=== PATIENT | male | born 1955 | race Caucasian/White ===

== ENCOUNTER 2020-07-29 09:58 | Day surgery (SDC) | payer BC, MEDICARE ==
--- NOTE | 2020-07-29 08:17 | HP ---
DATE OF SURGERY: 07/29/2020 HISTORY OF PRESENT ILLNESS: The patient is a 64 year-old last colonoscopy six years or so ago. He is in need of follow up screening colonoscopy. No bloody stools. No change in bowel habits. No pain. No blood from his stomach. Family history negative for colon cancer. PAST MEDICAL HISTORY: Diabetes. PAST SURGICAL HISTORY: Foot surgery. Lung surgery. MEDICATIONS: Metformin, vitamin B complex, Turmeric Curcumin, Humalog, tamsulosin, Soliqua, glimepiride. ALLERGIES: MORPHINE. FAMILY HISTORY: Negative for colon cancer. SOCIAL HISTORY: Denies alcohol abuse. REVIEW OF SYSTEMS: Fourteen systems reviewed. No chest pain or palpitations. Other systems negative or noncontributory as above and per preadmission questionnaire. PHYSICAL EXAMINATION: GENERAL: No acute distress. HEENT: Sclerae nonicteric. NECK: No JVD. CHEST: Equal excursion, nonlabored breathing. CVS: Regular rate and rhythm. ABDOMEN: Soft. No peritoneal signs. EXTREMITIES: No significant edema. NEURO: Alert, oriented, moving extremities symmetrically. PSYCH: Appropriate mood and affect. IMPRESSION: History of polyps in the past, need for follow up screening colonoscopy. I feel he is a candidate. Risks and benefits explained in detail including but not limited to bleeding or infection, risk of bowel injury or perforation possibly requiring open procedure, risk of missed or nondiagnosis or incomplete exam possibly requiring barium enema, other studies or procedures, general risk of anesthesia or sedation, risk of bowel prep but not limited to, consent obtained. Will proceed with outpatient follow up colonoscopy.
[2020-07-29] MEDS ORDERED: Lactated Ringers 1,000 ML IV SCH (10:30)
[2020-07-29] MEDS ORDERED: DIPRIVAN 200 MG/20 ML IV ONE (12:20)
[2020-07-29 13:00] VITALS: O2SAT 97
[2020-07-29 13:29] VITALS: PULSE 64
[2020-07-29 13:31] VITALS: BP 142/67
--- NOTE | 2020-07-30 08:49 | OP ---
SURGERY DATE/TIME: 07/29/2020 1206 PREOPERATIVE DIAGNOSIS: History of polyps, need follow up screening colonoscopy. POSTOPERATIVE DIAGNOSES: 1) Small polyps x2 sigmoid colon. 2) Mild diverticulosis. 3) Fair bowel prep. 4) ASA Class II. 5) Withdrawal time approximately eight minutes. 6) Fair bowel prep. PROCEDURES: 1) Colonoscopy to cecum with hot biopsy polypectomy. 2) Small early sigmoid colon polyps versus hyperplastic lesion, path pending. SURGEON: Dr. Tye Leung. ANESTHESIA: MAC. ESTIMATED BLOOD LOSS: Minimal. INDICATIONS: As noted above. Risks and benefits explained in detail but not limited to and consent obtained. DESCRIPTION OF PROCEDURE AND FINDINGS: The patient is taken to the operating room. MAC anesthesia introduced. After official time out and no disagreement with planned procedure, digital rectal exam did not reveal any rectal masses. He did have some minimal internal and external hemorrhoids. Video colonoscope inserted and passed up the tortuous sigmoid, descending, transverse and ascending colon. With external pressure the scope able to be passed around to the cecum. Appendiceal orifice and valve were visualized and photo documented. Prep overall was fair, a little bit of liquidy semi-solid and some foamy stool just slightly limiting the exam for very small lesions. The scope is slowly and carefully withdrawn over the next eight minutes. There were no signs of any large polyps, masses or obstructing lesions. He did have a couple 3 mm early polyps versus hyperplastic lesion in the sigmoid colon removed with hot biopsy forceps and brief bursts of cautery. Good hemostasis noted. Otherwise he had a few tiny diverticula. There were no signs of any large polyps, masses or obstructing lesions. He did have minimal internal and external hemorrhoids. The scope is withdrawn. The patient tolerated the procedure well. Findings discussed with the family out in the waiting area. I will see him back in the office in a couple of weeks to go over the results.
== END 2020-07-29 13:25 | disposition home or self-care (01) ==
LOC: SDC 09:58
PROVIDERS: ATTEND Surgery
DX: Z12.11 Encounter for screening for malignant neoplasm of colon (principal); Z09 Encounter for follow-up examination after completed treatment for conditions other than malignant neoplasm; Z86.010 Personal history of colon polyps; K57.30 Diverticulosis of large intestine without perforation or abscess without bleeding; K63.5 Polyp of colon; E11.9 Type 2 diabetes mellitus without complications; Z79.899 Other long term (current) drug therapy
CPT/HCPCS: 82947; 88305; J2704

== ENCOUNTER 2022-01-07 06:37 | Day surgery (SDC) | payer BC, MEDICARE ==
[2022-01-07] MEDS ORDERED: Depo-Medrol 40 MG/ML IM ONE (06:38)
[2022-01-07] MEDS ORDERED: Sodium Chloride 0.9(Preservative Free) 10 ML IJ ONE (06:38)
[2022-01-07] MEDS ORDERED: Xylocaine 1% Vial 30 ML PF IJ ONE (06:38)
[2022-01-07] MEDS ORDERED: VERSED 5 MG/5 ML ONE (07:57)
[2022-01-07] MEDS ORDERED: DIPRIVAN 200 MG/20 ML IV ONE (08:28)
[2022-01-07] MEDS ORDERED: Lactated Ringers 1,000 ML IV ONE (09:44)
--- NOTE | 2022-01-07 11:07 | XRAY ---
Indication: Lumbar JENNIFER. Intraoperative fluoroscopy provided for 27 seconds. 3 lateral digital spot image submitted for interpretation demonstrates posterior needle tip projecting just posterior to L4-L5 interspace. Small amount of contrast injected for needle placement. Correlate with intraoperative findings/report.
--- NOTE | 2022-01-07 11:34 | XRAY ---
27 seconds fluoroscopy time in surgery for lumbar JENNIFER.
== END 2022-01-07 09:10 | disposition home or self-care (01) ==
LOC: SDC-PAIN 06:37
PROVIDERS: ATTEND Psychiatry & Neurology Pain Medicine
DX: M54.16 Radiculopathy, lumbar region (principal); E11.9 Type 2 diabetes mellitus without complications; Z79.899 Other long term (current) drug therapy
CPT/HCPCS: 62323; 72100; 77003; 82947; J1030; J2001; J2250; J2704; Q9966

== ENCOUNTER 2023-06-02 10:42 | Day surgery (SDC) | payer BC, MEDICARE ==
[2023-06-02] MEDS ORDERED: Sodium Chloride 0.9(Preservative Free) 10 ML IJ ONE (10:43)
[2023-06-02] MEDS ORDERED: LIDOCAINE HCL 1% 50 MG/5 ML VL PF IJ ONE (10:43)
[2023-06-02] MEDS ORDERED: Depo-Medrol 40 MG/ML IM ONE (10:43)
[2023-06-02] MEDS ORDERED: Versed 2 MG/2 ML Injection ONE (12:39)
[2023-06-02] MEDS ORDERED: DIPRIVAN 200 MG/20 ML IV ONE (12:58)
[2023-06-02] MEDS ORDERED: Lactated Ringers 1,000 ML IV ONE (13:48)
--- NOTE | 2023-06-02 13:51 | XRAY ---
Indication: Lumbar JENNIFER. Intraoperative fluoroscopy provided for 24 seconds. 2 digital spot image submitted for interpretation demonstrates posterior needle tip projecting posterior to lumbosacral junction roots. Small amount of contrast injected for needle tip placement. Correlate with intraoperative findings/report.
--- NOTE | 2023-06-02 15:07 | XRAY ---
24 seconds of fluoroscopy was used in surgery for a lumbar JENNIFER.
== END 2023-06-02 13:43 | disposition home or self-care (01) ==
LOC: SDC-PAIN 10:42
PROVIDERS: ATTEND Psychiatry & Neurology Pain Medicine
DX: M54.16 Radiculopathy, lumbar region (principal); E11.9 Type 2 diabetes mellitus without complications
CPT/HCPCS: 62323; 72100; 77003; 82947; J1030; J2001; J2250; J2704; Q9966

== ENCOUNTER 2023-09-22 08:10 | Day surgery (SDC) | payer OTHER, MEDICARE ==
[2023-09-22] MEDS ORDERED: LIDOCAINE HCL 1% 50 MG/5 ML VL PF IJ ONE (08:11)
[2023-09-22] MEDS ORDERED: Sodium Chloride 0.9(Preservative Free) 10 ML IJ ONE (08:11)
[2023-09-22] MEDS ORDERED: Depo-Medrol 40 MG/ML IM ONE (08:11)
[2023-09-22] MEDS ORDERED: Versed 2 MG/2 ML Injection ONE (09:17)
[2023-09-22] MEDS ORDERED: Lactated Ringers 1,000 ML IV ONE (10:03)
[2023-09-22] MEDS ORDERED: DIPRIVAN 200 MG/20 ML IV ONE (10:04)
--- NOTE | 2023-09-22 10:51 | XRAY ---
Indication: Lumbar JENNIFER. Intraoperative fluoroscopy provided for 26 seconds. 2 digital spot images submitted for interpretation demonstrates posterior needle tip projecting posterior to lumbosacral junction interspace. Small amount of contrast injected for needle tip placement. Correlate with intraoperative findings/report.
--- NOTE | 2023-09-22 12:25 | XRAY ---
26 seconds of fluoroscopy was used in surgery for a lumbar JENNIFER.
== END 2023-09-22 11:11 | disposition home or self-care (01) ==
LOC: SDC-PAIN 08:10
PROVIDERS: ATTEND Psychiatry & Neurology Pain Medicine
DX: M54.16 Radiculopathy, lumbar region (principal); E11.9 Type 2 diabetes mellitus without complications
CPT/HCPCS: 62323; 72100; 77003; 82947; J2001; J2250; J2704; Q9966

== ENCOUNTER 2024-05-17 08:21 | Day surgery (SDC) | payer OTHER, MEDICARE ==
[2024-05-17] MEDS ORDERED: Depo-Medrol 40 MG/ML IM ONE (08:22)
[2024-05-17] MEDS ORDERED: LIDOCAINE HCL 2% 100 MG/5 ML IJ ONE (08:22)
[2024-05-17] MEDS ORDERED: propofoL IV ONE (10:10)
--- NOTE | 2024-05-17 11:29 | XRAY ---
Indication: Bilateral L4-S1 MBB. Intraoperative fluoroscopy provided for 19 second. Single digital spot image submitted for interpretation demonstrates posterior needle tips project over expected left and right L4-S1 nerve roots. Correlate with intraoperative findings/report.
--- NOTE | 2024-05-17 14:43 | XRAY ---
19 seconds of fluoroscopy was used in surgery for a bilateral L4-S1 MBB.
== END 2024-05-17 10:55 | disposition home or self-care (01) ==
LOC: SDC-PAIN 08:21
PROVIDERS: ATTEND Psychiatry & Neurology Pain Medicine
DX: M47.816 Spondylosis without myelopathy or radiculopathy, lumbar region (principal); E11.9 Type 2 diabetes mellitus without complications
CPT/HCPCS: 64493; 64494; 72020; 77002; 82947; J2704

== ENCOUNTER 2024-06-21 07:34 | Day surgery (SDC) | payer OTHER, MEDICARE ==
[2024-06-21] MEDS ORDERED: BUPIVACAINE 0.5% VIAL IJ ONE (07:35)
[2024-06-21] MEDS ORDERED: Depo-Medrol 40 MG/ML IM ONE (07:35)
[2024-06-21] MEDS ORDERED: Versed 2 MG/2 ML Injection ONE (08:44)
[2024-06-21] MEDS ORDERED: propofoL IV ONE (09:42)
--- NOTE | 2024-06-21 11:38 | XRAY ---
Indication: Bilateral L4-S1 MBB. Intraoperative fluoroscopy provided for 8 seconds. Single digital spot image submitted for interpretation demonstrates posterior needle tips projecting over expected left and right L4-S1 nerve roots. Correlate with intraoperative findings/report.
--- NOTE | 2024-06-21 12:57 | XRAY ---
8 seconds of fluoroscopy was used in surgery for a bilateral L4-S1 MBB.
== END 2024-06-21 10:08 | disposition home or self-care (01) ==
LOC: SDC-PAIN 07:34
PROVIDERS: ATTEND Psychiatry & Neurology Pain Medicine
DX: M47.817 Spondylosis without myelopathy or radiculopathy, lumbosacral region (principal); E11.9 Type 2 diabetes mellitus without complications
CPT/HCPCS: 64493; 64494; 72020; 82947; J2250; J2704

== ENCOUNTER 2024-07-13 07:10 | Day surgery (SDC) | payer OTHER, MEDICARE ==
[2024-07-13] MEDS ORDERED: methylPREDNISolone acetate IM ONE (07:11)
[2024-07-13] MEDS ORDERED: BUPIVACAINE 0.5% VIAL IJ ONE (07:11)
[2024-07-13] MEDS ORDERED: LIDOCAINE HCL 1% AMPUL 5 ML IJ ONE (07:11)
[2024-07-13] MEDS ORDERED: Versed 2 MG/2 ML Injection ONE (08:06)
[2024-07-13] MEDS ORDERED: propofoL IV ONE (08:50)
--- NOTE | 2024-07-13 10:56 | XRAY ---
Indication: Left L4-S1 RFA. Intraoperative fluoroscopy provided for 12 seconds. 4 digital spot image submitted for interpretation demonstrates posterior needle tips projecting over expected left L4-S1 nerve roots. Correlate with intraoperative findings/report.
--- NOTE | 2024-07-13 12:22 | XRAY ---
12 seconds of fluoroscopy was used in surgery for a left L4-S1 RFA.
== END 2024-07-13 09:25 | disposition home or self-care (01) ==
LOC: SDC-PAIN 07:10
PROVIDERS: ATTEND Psychiatry & Neurology Pain Medicine
DX: M47.817 Spondylosis without myelopathy or radiculopathy, lumbosacral region (principal); E11.9 Type 2 diabetes mellitus without complications
CPT/HCPCS: 64635; 64636; 72100; 82947; J1010; J2250; J2704

== ENCOUNTER 2024-07-19 07:16 | Day surgery (SDC) | payer OTHER, MEDICARE ==
[2024-07-19] MEDS ORDERED: LIDOCAINE HCL 1% 50 MG/5 ML VL IJ ONE (07:17)
[2024-07-19] MEDS ORDERED: methylPREDNISolone acetate IM ONE (07:17)
[2024-07-19] MEDS ORDERED: BUPIVACAINE 0.5% VIAL IJ ONE (07:17)
[2024-07-19] MEDS ORDERED: Versed 2 MG/2 ML Injection ONE (08:07)
[2024-07-19] MEDS ORDERED: propofoL IV ONE (09:05)
[2024-07-19] MEDS ORDERED: Lactated Ringers 1,000 ML IV ONE (10:10)
--- NOTE | 2024-07-19 21:06 | XRAY ---
Indication: Right L4-S1 RFA. Intraoperative fluoroscopy provided for 15 seconds. 3 digital spot image submitted for interpretation demonstrates posterior needle tips projecting over expected right L4-S1 nerve roots. Correlate with intraoperative findings/report.
--- NOTE | 2024-07-19 21:20 | XRAY ---
15 seconds of fluoroscopy was used in surgery for a right L4-S1 RFA.
== END 2024-07-19 09:39 | disposition home or self-care (01) ==
LOC: SDC-PAIN 07:16
PROVIDERS: ATTEND Psychiatry & Neurology Pain Medicine
DX: M47.817 Spondylosis without myelopathy or radiculopathy, lumbosacral region (principal); E11.9 Type 2 diabetes mellitus without complications
CPT/HCPCS: 64635; 64636; 72100; 82947; J1010; J2250; J2704